=== PATIENT | female | born 1960 | race Caucasian/White ===

== ENCOUNTER 2017-02-27 05:39 | Inpatient (IN) | payer BC ==
[~2017-02-27] VITALS: Ht 158.8 cm; Wt 100.6 kg
[~2017-02-27 05:39] MED LIST: CELE200C PO; CHOL20002 PO; CYAN1TAB29 PO; CYCL-259 PO; IRON PO; MULT-516 PO; ROPI0.5T2 PO; TRAM50TA2 PO; VITA1TAB19 PO
[2017-02-27] MEDS ORDERED: LACTATED RINGERS 1,000 ML IV SCH (06:23)
[2017-02-27 06:53] VITALS: BP 128/86
[2017-02-27] MEDS ORDERED: LIDOCAINE 1%, 50ML ONE (07:00)
[2017-02-27] MEDS ORDERED: BUPIVACAINE/PF 0.25% ONE (07:01)
[2017-02-27] MEDS ORDERED: BUPIVACAINE/PF 0.5% ONE (07:01)
[2017-02-27] MEDS ORDERED: BACITRACIN 50,000 UNIT ONE (07:01)
[2017-02-27] MEDS ORDERED: THROMBIN 5,000 UNIT VIAL TP ONE (07:01)
[2017-02-27] MEDS ORDERED: EPINEPHRINE 1 MG/ML, 1ML ONE (07:01)
[2017-02-27] MEDS ORDERED: ONDANSETRON 2MG/ML, 2ML ONE (07:25)
[2017-02-27] MEDS ORDERED: METOCLOPRAMIDE 5 MG/ML, 2ML ONE (07:25)
[2017-02-27] MEDS ORDERED: DEXAMETHASONE 4 MG/ML, 1ML ONE (07:25)
[2017-02-27] MEDS ORDERED: SUCCINYLCHOLINE 20 MG/ML, 10ML ONE (07:25)
[2017-02-27] MEDS ORDERED: KETAMINE 10 MG/ML, 20ML ONE (07:26)
[2017-02-27] MEDS ORDERED: INDIGO CARMINE 0.8%, 5ML ONE (07:26)
[2017-02-27] MEDS ORDERED: REMIFENTANIL 2 MG ONE (07:27)
[2017-02-27] MEDS ORDERED: PROPOFOL 50 ML ONE (07:27)
[2017-02-27] MEDS ORDERED: FENTANYL PF 100 MCG/2ML ONE ×2 (07:28→10:11)
[2017-02-27] MEDS ORDERED: MIDAZOLAM 1 MG/ML, 2ML ONE (07:28)
[2017-02-27] MEDS ORDERED: PHENYLEPHRINE 10 MG/ML ONE (07:55)
[2017-02-27] MEDS ORDERED: CEFAZOLIN 1,000 MG ONE (07:55)
[2017-02-27] MEDS: FENTANYL PF 100 MCG/2ML IV PRN ×2 (10:13→10:19)
[2017-02-27] MEDS ORDERED: ACETAMINOPHEN 650 MG/20.3 ML UDC ONE (10:18)
[2017-02-27] MEDS ORDERED: HYDROmorphone 2 MG/ML, 1ML ONE (10:18)
[2017-02-27] MEDS ORDERED: OXYcodone 5 MG/5 ML ORAL.SOL UDC ONE ×2 (10:18→11:02)
[2017-02-27] MEDS: OXYcodone 5 MG/5 ML ORAL.SOL UDC PO PRN ×2 (10:21→11:03)
[2017-02-27] MEDS: HYDROmorphone 1 MG/ML, 1ML IV PRN ×3 (10:28→11:01)
[2017-02-27] MEDS ORDERED: EPHEDRINE 50 MG/ML, 1ML IVPush PRN (10:30)
[2017-02-27] MEDS ORDERED: HYDROmorphone PCA 30 MG/30 ML ONE (10:30)
[2017-02-27] MEDS ORDERED: ONDANSETRON 2MG/ML, 2ML IVPush PRN (10:30)
[2017-02-27] MEDS ORDERED: MIDAZOLAM 1 MG/ML, 2ML IV PRN (10:30)
[2017-02-27] MEDS ORDERED: ALBUTEROL SULFATE 2.5 MG/3 ML NPPB PRN (10:30)
[2017-02-27] MEDS ORDERED: METOCLOPRAMIDE 5 MG/ML, 2ML IV PRN (10:30)
[2017-02-27] MEDS ORDERED: LABETALOL 5MG/ML, 20ML IV PRN ×2 (10:30→12:30)
[2017-02-27] MEDS ORDERED: ACETAMINOPHEN 650 MG/20.3 ML UDC PO PRN (10:30)
[2017-02-27] MEDS ORDERED: MEPERIDINE/PF 25MG/0.5ML IVPush PRN (10:30)
[2017-02-27] MEDS ORDERED: hydrALAzine 20 MG/ML, 1ML IV PRN (10:30)
[2017-02-27] MEDS ORDERED: DIAZEPAM 5 MG/ML, 2ML IVPush PRN (11:00)
[2017-02-27] MEDS ORDERED: HYDROmorphone PCA 30 MG/30 ML IV PRN (11:00)
[2017-02-27] MEDS ORDERED: DIPHENHYDRAMINE 50 MG CAPSULE PO PRN (12:30)
[2017-02-27] MEDS ORDERED: PROMETHAZINE 25 MG/ML, 1ML IM PRN (12:30)
[2017-02-27] MEDS ORDERED: CYCLOBENZAPRINE 10 MG TABLET PO PRN (12:30)
[2017-02-27] MEDS ORDERED: OXYcodone IR 5MG TABLET PO PRN ×2 (12:30)
[2017-02-27] MEDS ORDERED: DIPHENHYDRAMINE 50 MG/ML, 1ML IVPush PRN (12:30)
[2017-02-27] MEDS ORDERED: HYDROmorphone 2 MG/ML, 1ML IM PRN (12:30)
[2017-02-27] MEDS ORDERED: BISACODYL 10 MG SUPP PR PRN (12:30)
[2017-02-27] MEDS ORDERED: MAGNESIUM HYDROXIDE 8%, 30ML UDC PO PRN (12:30)
[2017-02-27] MEDS ORDERED: DIPHENHYDRAMINE 50 MG/ML, 1ML IM PRN (12:30)
[2017-02-27] MEDS: ACETAMINOPHEN 500 MG TABLET PO SCH ×2 (15:00→22:55)
[2017-02-27] MEDS: D5%-0.9% NACL+KCL 20MEQ 1,000 ML IV SCH ×2 (15:01→22:55)
[2017-02-27] MEDS: DEXAMETHASONE 4 MG/ML, 1ML IVPush SCH ×2 (15:01→22:56)
[2017-02-27 16:22] VITALS: BP 123/82
[2017-02-27] MEDS: CEFAZOLIN PMX 1GM/50ML 50 ML IVPB SCH (16:25)
[2017-02-27 18:49] VITALS: BP 122/72
[2017-02-27] MEDS ORDERED: ROPINIROLE 0.5MG TABLET PO SCH (21:00)
[2017-02-28 00:07] VITALS: BP 121/74
[2017-02-28] MEDS: CEFAZOLIN PMX 1GM/50ML 50 ML IVPB SCH (00:38)
[2017-02-28] MEDS ORDERED: PROMETHAZINE 25 MG SUPP PR PRN (03:30)
[2017-02-28 04:09] VITALS: BP 106/69
[2017-02-28] MEDS: D5%-0.9% NACL+KCL 20MEQ 1,000 ML IV SCH ×2 (05:13→12:30)
[2017-02-28] MEDS: DEXAMETHASONE 4 MG/ML, 1ML IVPush SCH (05:13)
[2017-02-28] MEDS: ACETAMINOPHEN 500 MG TABLET PO SCH (06:39)
[2017-02-28 06:40] VITALS: BP 123/73
[2017-02-28] MEDS ORDERED: SENNA/DOCUSATE TABLET PO SCH (09:00)
[2017-02-28 13:05] VITALS: BP 115/73
== END 2017-02-28 14:38 | disposition home or self-care (01) | DRG 473 ==
LOC: ORIP 05:39 → 4NOR 11:50 → DCLOUNGE 02-28 14:21
PROVIDERS: ADMIT Orthopaedic Surgery Orthopaedic Surgery of the Spine; ATTEND Orthopaedic Surgery Orthopaedic Surgery of the Spine
PROC: 01N10ZZ Release Cervical Nerve, Open Approach (ICD-10-PCS; 2017-02-27)
PROC: 0RB30ZZ Excision of Cervical Vertebral Disc, Open Approach (ICD-10-PCS; 2017-02-27)
PROC: 4A11X4G Monitoring of Peripheral Nervous Electrical Activity, Intraoperative, External Approach (ICD-10-PCS; 2017-02-27)
PROC: 0RG20A0 Fusion of 2 or more Cervical Vertebral Joints with Interbody Fusion Device, Anterior Approach, Anterior Column, Open Approach (ICD-10-PCS; principal; 2017-02-27 07:30)
DX: M47.22 Other spondylosis with radiculopathy, cervical region (principal); G25.81 Restless legs syndrome; M79.7 Fibromyalgia; Z96.652 Presence of left artificial knee joint; Z88.8 Allergy status to other drugs, medicaments and biological substances; Z90.49 Acquired absence of other specified parts of digestive tract
CPT/HCPCS: 72040; C1713; J0171; J0690; J1100; J1170; J2250; J2405; J2704; J3010; J3360; J3490; C1762; J0330; J2370; J2765; J3480; J7120